=== PATIENT | female | born 1955 | race Caucasian/White ===

== ENCOUNTER 2019-10-25 08:13 | Inpatient (IN) | payer MEDICARE, SELFPAY ==
[2019-10-25] VITALS (28 sets, daily range): BP systolic 98–195; BP diastolic 43–142; PULSE 83–100; RESP 14–26; TEMP 36.2–36.8; O2SAT 96–100; BMI 15.5; BMI 15.3
--- NOTE | 2019-10-25 08:29 | EKG12_ITS ---
Test Reason : CP Blood Pressure : / mmHG Vent. Rate : 089 BPM Atrial Rate : 089 BPM P-R Int : 140 ms QRS Dur : 094 ms QT Int : 406 ms P-R-T Axes : 079 065 078 degrees QTc Int : 493 ms Sinus rhythm with occasional Premature ventricular complexes Left ventricular hypertrophy with repolarization abnormality Prolonged QT Abnormal ECG Confirmed by MIRANDA BHARDWAJ, HAL ([id number]), assistant film editor IFRAH HAHN ([id number]) on 10/30/2019 9:26:12 AM Referred By: SHAWNA Confirmed By:MEAGAN JEAN MD
--- NOTE | 2019-10-25 08:40 | NURSING ---
PT HAD NO PREVIOUS EKG DONE IN OUR SYSTEM
--- NOTE | 2019-10-25 08:47 | ED.DCSUM_ITS ---
- ER Visit Summary Date of Service: 10/25/19 Chief Complaint: [Chest pain] History of Present Illness: The patient is a 64 F [presents to the emergency department with complaint of chest pain that started this morning around an hour prior to arrival in the emergency department. Patient called EMS. Patient apparently staying at a motel in the area as she is here visiting try to take care of her brother who had a leg amputation. Patient states that the pain is sharp and stabbing and radiates down her left arm. She did feel nauseated and vomited x1. She does feel somewhat short of breath with it. She has had similar pains in the past. She tells me she has no heart history. Patient denies any fevers. Patient states that she has had a cough for some time with some sputum. She is a smoker. Patient has history of diabetes, hypertension, anxiety, and depression. Initially she denied any illicit drug use and then told the nursing staff that she smoked crack cocaine a few days ago. Patient has history of prior cholecystectomy and esophageal shortening. She tells me she has no primary care physician. She also tells me she was admitted to [facility] several weeks ago but cannot tell me why. She is not sure what medications she is on. When asked if she has had recent travel over 4 hours by car or airplane she states that she has but cannot tell me where she went and when.] Physical Examination: [HEENT-PERRLA, EOMI. Cranial nerves II through XII grossl y intact. TMs clear. Mucous membranes moist. No adenopathy. Cardiovascular-regular rate and rhythm without murmur or ectopy Lungs-clear to auscultation, chest wall stable without crepitus or subcu emphysema Abdomen-normoactive bowel sounds, soft, nontender, no rebound or rigidity, no peritoneal signs. Extremities-intact ?4, normal range of motion, normal pulses, atraumatic] Test Results: [EKG obtained arrival shows sinus rhythm with a ventricular rate of 89 bpm with occasional PVCs and LVH noted.] CBC with a potential echo 7.6, hemoglobin 11.5, hematocrit 34, placed 432. Chemistry showed a sodium 121, potassium 3.2, chloride 82, CO2 30, BUN 12, creatinine 1.47, glucose 935. Lipase was 240. Troponin less than 0.015. D-dimer was 1.09. Lactate was 3.3. Toxicology screen positive for cocaine. Chest x-ray obtained showed COPD and a left upper lobe and lower lobe infiltrate. CT of the chest was negative for PE or dissection she was noted to have left upper lobe and left lower lobe infiltrates. Emergency Department Course and Treatment: [9 established. Patient was given a liter normal same fluid bolus. Patient started on an insulin drip.. Patient was given Levaquin 750 p.o.] patient received sublingual nitro on arrival and had some pain relief with that. Aspirin was given by EMS. Treatment Plan: [Admit to ICU] Disposition: [Admit] Impression: [Pneumonia Hyperglycemia Hyponatremia Cocaine abuse Chest pain-etiology uncertain] This note was generated with [employer] dictation software. It may contain incorrect words, spelling, and punctuation that were not noted in review of the chart prior to signing
[2019-10-25 09:16] LABS: Bedside Glucose > 500 mg/dL (70-110)
[2019-10-25 09:39] LABS: Absolute Lymphocyte Count 1.37 X10^3/uL (0.83-4.51); Absolute Neutrophil Count 5.7 X10^3/uL (2.0-7.7); Basophil# 0.04 X10^3/uL; Basophil% 0.5 % (0-1); Eosinophil# 0.02 X10^3/uL; Eosinophils% 0.3 % (0-5); Hematocrit 34.1 % (37-47); Hemoglobin 11.5 g/dL (12.0-15.0); Lymphocyte # 1.37 X10^3/ul (4.0); Lymphocyte % 18.1 % (19-41); Mean Corp Hgb Conc 33.7 g/dL (32-36); Mean Corpuscular Volume 91.9 fL (81-99); Mean Platelet Vol. 10.5 fl (6.2-12.0); Monocyte% 5.3 % (0-10); NRBC Flagged by Analyzer 0 % (0-5); Neutrophil # 5.69 X10^3/uL (2.7-7.7); Neutrophil % 75.4 % (47-70); Platelet Count 432 K/mm3 (150-450); RBC Distribution Width CV 14.5 % (11.6-14.6); RBC Distribution Width SD 46.5 fl (35.1-43.9); Red Blood Count 3.71 M/mm3 (4.2-5.4); White Blood Count 7.6 K/mm3 (4.4-11.0)
[2019-10-25 09:39] LABS: Amphetamine Urine VISTA NEGATIVE (<1000 ng/mL); Barbiturate Urine VISTA NEGATIVE (< 200 ng/mL); Benzodiazepine Urine VISTA NEGATIVE (< 200 ng/mL); Cocaine Urine VISTA POSITIVE (< 300 ng/mL); Ecstacy Urine VISTA NEGATIVE (< 500 ng/mL); Methadone Urine VISTA NEGATIVE (< 300 ng/mL); PCP Urine VISTA NEGATIVE (< 25 ng/mL); THC Urine VISTA NEGATIVE (< 50 ng/mL); Vista UDS pH Range 6
[2019-10-25] MEDS: Ondansetron 4 MG/2 ML Vial IV ×2 (09:46→21:07)
[2019-10-25] MEDS: 0.9% Normal Saline 1,000 ML 999 ML IV (09:47)
[2019-10-25] MEDS: Nitroglycerin SL (ED/IMG/CATH) 0.4 MG TABLET SUBLINGUAL ×3 (09:49→10:09)
--- NOTE | 2019-10-25 09:49 | ED.RN ---
[facility] [place] [facility]. WAITING FOR THEM TO SEND US A RELEASE OF INFORMATION FORM TO FAX BACK BEFORE THE GIVE US HER MEDICATION LIST.
[2019-10-25 09:51] LABS: D-Dimer Quantitative (DVT/PE) 1.09 FEU/ug/m (0.27-0.49)
--- NOTE | 2019-10-25 09:55 | RAD_ITS ---
STUDY: X-RAY CHEST REASON FOR EXAM: Female, 64 years old. COUGH, SOB,CHILLS; CHEST PAIN AND RT ARM PAIN X1 HOUR TECHNIQUE: Single AP portable view of the chest. COMPARISON: None. FINDINGS: EKG electrodes are seen. Hyperinflation. There is a patchy infiltrate in the posterior medial segment of the left lower lobe. Mild increase markings with areas of confluence in the peripheral aspect of the left mid lung. There is no demonstrated pleural abnormality. Normal size heart. Normal mediastinum and emile. Normal visualized pulmonary arteries. There is atherosclerotic calcification of the aortic arch with tortuosity. Dextroscoliosis at the thoracal lumbar region. Normal visualized thoracic spine. Normal visualized ribs, clavicles, and shoulders. Surgical clips are seen in the epigastric region. RAD/Chest 1 View (Portable) IMPRESSION: Focal infiltrate in the posterior medial segment of the left upper lobe with areas of increased markings and confluence in the peripheral aspect of the left midlung. Electronically Signed: Benjamin Coronado, at 10:36 EDT , Service support ,
[2019-10-25 10:02] LABS: Anion Gap 9 (5-15); BUN 12 mg/dL (7-18); BUN/Creat Ratio 8.2 RATIO (10-20); Calcium,Total 9.1 mg/dL (8.5-10.1); Chloride 82 mmol/L (98-107); Creatinine, Serum 1.47 mg/dL (0.55-1.02); EST Glomerular Filtration Rate 38 mL/min (>60); Est Glom Filt Rate - Afr Amer 46 mL/min (>60); Estimated Creatinine Clearance 27.09 ml/min; Glucose 935 mg/dL (74-106); Lipase 240 U/L (73-393); Potassium 3.2 mmol/L (3.5-5.1); Sodium Level 121 mmol/L (136-145)
--- NOTE | 2019-10-25 10:08 | ED.RN ---
PT REFUSED MORPHINE, REQUESTING DILAUDID. MD AWARE, NO NEW ORDERS GIVEN.
--- NOTE | 2019-10-25 10:50 | CT_ITS ---
STUDY: CTA CHEST REASON FOR EXAM: Female, 64 years old. CP, MID STERNAL, R ARM, BACK X 1 HR. RADIATION DOSAGE (If Supplied By Facility): CTDIvol = ( 8.44 ) mGy, DLP = ( 110.24 ) mGycm TECHNIQUE: The examination was performed with the intravenous administration of 100 CC ISOVUE 370. Post-processing of the angiographic images was performed, with multiplanar reformation and 3D reconstruction. Individualized dose optimization techniques were used for this CT. COMPARISON: None. FINDINGS: The patient is status post gastric pull-through procedure with esophagus and stomach in the right paraspinal region. Normal enhancement of the main pulmonary artery and right and left pulmonary arteries. Normal enhancement of the bilateral peripheral pulmonary arteries. There is no demonstrated pulmonary embolism. There is atherosclerotic calcification of the aortic arch with tortuosity. There is no demonstrated aortic dissection. Normal heart and pericardium. Normal mediastinum. Normal hilar regions. Normal visualized trachea and bronchi. The lungs are well expanded. Focal infiltrate in the posterior aspect of the left upper lobe. There is evidence of a 1.7 cm x 0.9 cm pleural-based nodule at that site as seen on axial image #124. Follow-up is recommended. There is also evidence of focal infiltration in the left lower lobe. The right lung is clear Normal pleura. Normal chest wall structures. There are degenerative changes of thoracic spine. Normal visualized upper abdomen. CT/CTA Chest W/WO Contrast IMPRESSION: No evidence of pulmonary embolism. Infiltration in the posterior aspect of the left upper lobe as well as in the left lower lobe with pleural based nodule in the posterior aspect of the right upper lobe. Follow-up is recommended. Electronically Signed: Benjamin Coronado, at 12:47 EDT , Service support ,
[2019-10-25] MEDS: 0.9% Normal Saline 1,000 ML 150 ML IV ×2 (12:16→18:49)
[2019-10-25 12:48] LABS: Glucose 628 mg/dL (74-106)
[2019-10-25] MEDS: LORazepam 2 MG/ML Syringe 0.5 MG IV (13:07)
[2019-10-25 13:09] LABS: Lactic Acid 3.3 mmol/L (0.4-1.9)
[2019-10-25] MEDS: levoFLOXacin 750 MG Tablet PO (13:14)
--- NOTE | 2019-10-25 13:14 | NURSING ---
DR BAY FOR DR SANTANA
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
--- NOTE | 2019-10-25 13:22 | NURSING ---
ICU PNEUMONIA, CP, HYPERGLYCEMIA, COCAINE ABUSE PAINTSIL
--- NOTE | 2019-10-25 14:28 | NURSING ---
ICU 2
[2019-10-25 14:41] LABS: Bedside Glucose 385 mg/dL (70-110)
[2019-10-25 15:16] LABS: Bedside Glucose 333 mg/dL (70-110)
[2019-10-25] MEDS: Enoxaparin 30 MG/0.3 ML Syringe SC (16:20)
[2019-10-25] MEDS: Insulin Lispro 100 UNIT/ML INSULN.PEN SC ×2 (16:21→21:05)
[2019-10-25] MEDS: Gabapentin 400 MG Capsule PO (16:23)
[2019-10-25 16:25] LABS: Reflex Lactate? Y
[2019-10-25 16:36] LABS: Bedside Glucose 343 mg/dL (70-110)
[2019-10-25] MEDS: 0.9% Saline Lock 10 ML Syringe IV ×2 (17:01→21:07)
[2019-10-25] MEDS: Morphine 2 MG/ML Syringe IV ×2 (17:01→23:05)
[2019-10-25 18:15] LABS: Anion Gap 7 (5-15); BUN 11 mg/dL (7-18); BUN/Creat Ratio 9.6 RATIO (10-20); Calcium,Total 8.5 mg/dL (8.5-10.1); Chloride 96 mmol/L (98-107); Creatinine, Serum 1.15 mg/dL (0.55-1.02); EST Glomerular Filtration Rate 51 mL/min (>60); Est Glom Filt Rate - Afr Amer 61 mL/min (>60); Estimated Creatinine Clearance 33.91 ml/min; Glucose 346 mg/dL (74-106); Sodium Level 131 mmol/L (136-145)
[2019-10-25 18:21] LABS: Lactic Acid 2.6 mmol/L (0.4-1.9)
[2019-10-25] MEDS: LORazepam 1 MG Tablet PO (18:48)
[2019-10-25 19:03] LABS: Hemoglobin A1c > 16.0 % (3.8-5.6)
[2019-10-25] MEDS: Gabapentin 600 MG Tablet PO (21:06)
[2019-10-25] MEDS: cycloBENZAPRine HCl 10 MG Tablet PO (21:06)
[2019-10-25] MEDS: Pantoprazole Sodium 20 MG Tablet PO (21:06)
[2019-10-25 21:20] LABS: Bedside Glucose 309 mg/dL (70-110)
--- NOTE | 2019-10-25 21:27 | NURSING ---
report called to Rolando RN, pt will be transferred to [id number]
[2019-10-25] MEDS: Lidocaine 5% Patch 2 PATCH TOPICAL (23:04)
[2019-10-26] VITALS (7 sets, daily range): BP systolic 91–103; BP diastolic 49–57; PULSE 78–93; RESP 16–20; TEMP 36.8; O2SAT 95–96
[2019-10-26] MEDS: 0.9% Normal Saline 1,000 ML 150 ML IV ×2 (01:49→08:27)
[2019-10-26 03:41] LABS: Bedside Glucose 122 mg/dL (70-110)
[2019-10-26] MEDS: Ondansetron 4 MG/2 ML Vial IV (05:33)
[2019-10-26] MEDS: 0.9% Saline Lock 10 ML Syringe IV (05:35)
[2019-10-26 06:36] LABS: ALB/GLOB Ratio 0.4 RATIO (0.9-2.4); AST(SGOT) 24 U/L (15-37); Alanine Aminotransfer ALT/SGPT 20 U/L (13-56); Albumin, Serum 1.6 g/dL (3.2-5.0); Alkaline Phosphatase 94 U/L (45-117); Anion Gap 6 (5-15); BUN 15 mg/dL (7-18); BUN/Creat Ratio 16.8 RATIO (10-20); Calcium,Total 7.5 mg/dL (8.5-10.1); Chloride 103 mmol/L (98-107); EST Glomerular Filtration Rate 68 mL/min (>60); Est Glom Filt Rate - Afr Amer 82 mL/min (>60); Estimated Creatinine Clearance 46.66 ml/min; Globulin 4.5 g/dL (2.2-4.2); Glucose 99 mg/dL (74-106); Potassium 3.6 mmol/L (3.5-5.1); Protein, Total 6.1 g/dL (6.4-8.2); Sodium Level 131 mmol/L (136-145)
[2019-10-26 06:51] LABS: Bedside Glucose 121 mg/dL (70-110)
[2019-10-26 07:12] LABS: Absolute Lymphocyte Count 3.27 X10^3/uL (0.83-4.51); Absolute Neutrophil Count 4.1 X10^3/uL (2.0-7.7); Basophil# 0.06 X10^3/uL; Basophil% 0.7 % (0-1); Eosinophil# 0.25 X10^3/uL; Hematocrit 28.3 % (37-47); Hemoglobin 9.1 g/dL (12.0-15.0); Lymphocyte # 3.27 X10^3/ul (4.0); Lymphocyte % 39.2 % (19-41); Mean Corp Hgb Conc 32.2 g/dL (32-36); Mean Corpuscular Hgb 29.2 pg (27.0-32.0); Mean Corpuscular Volume 90.7 fL (81-99); Monocyte# 0.65 X10^3/uL; Monocyte% 7.8 % (0-10); NRBC Flagged by Analyzer 0 % (0-5); Neutrophil # 4.07 X10^3/uL (2.7-7.7); Neutrophil % 48.8 % (47-70); Platelet Count 399 K/mm3 (150-450); RBC Distribution Width CV 14.6 % (11.6-14.6); RBC Distribution Width SD 47.9 fl (35.1-43.9); Red Blood Count 3.12 M/mm3 (4.2-5.4); White Blood Count 8.3 K/mm3 (4.4-11.0)
[2019-10-26] MEDS: Ipratropium/Albuterol Sulfate 3 ML AMPUL.NEB INHALATION (07:20)
[2019-10-26] MEDS: Enoxaparin 30 MG/0.3 ML Syringe SC (08:28)
[2019-10-26] MEDS: Pantoprazole Sodium 20 MG Tablet PO (08:28)
[2019-10-26] MEDS: Gabapentin 400 MG Capsule PO (08:29)
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
--- NOTE | 2019-10-26 11:49 | NURSING ---
patient removed own ivs got dressed states she is leaving will not let nurse take blood sugar or vital signs. left with her belongings refused to stay to talk to md states she has an appointment on the
--- NOTE | 2019-10-26 12:38 | DS.PCM_ITS ---
<Evan Ahuja - Last Filed: 10/26/19 12:38> Discharge Date and Diagnosis Date of Admission: 10/25/19 Date of Discharge: 10/26/19 - Primary Discharge Diagnosis Acute Problems: HHS syndrome 2/2 medication noncompliance Community Acquired Pna COPD exacerbation BERNARDA 2/2 HHX Hypokalemia/hyponatremia Crack/cocaine abuse - Secondary Discharge Diagnosis Chronic Problems: Chronic Problems DM type 2 (diabetes mellitus, type 2) (Chronic) COPD (chronic obstructive pulmonary disease) (Chronic) Hospital Course and Treatment Imaging Results: RAD/Chest 1 View (Portable) IMPRESSION: Focal infiltrate in the posterior medial segment of the left upper lobe with areas of increased markings and confluence in the peripheral aspect of the left midlung. CT/CTA Chest W/WO Contrast IMPRESSION: No evidence of pulmonary embolism. Infiltration in the posterior aspect of the left upper lobe as well as in the left lower lobe with pleural based nodule in the posterior aspect of the right upper lobe. Follow-up is recommended. Operations: None Procedures: None Summary of Care Provided: Hospital course: The patient is a 64 year old F past medical history of COPD, chronic hypoxic respiratory failure, nicotine abuse recent admission at [facility] for pneumonia who presented to the emergency room with complaints of left-sided chest pain for the past day. Patient was found to have severe hyperglycemia and admitted that she had moved from [place] to her brother's house and did not bring any of her insulin or other medications and had been intermittently using her brothers insulin up until recently she had gotten an argument with him and moved out to a motel where she has not been using any insulin. CTA of the chest demonstrated left-sided pneumonia. She did not have fever or leukocytosis however did have subjective chills overnight and had lactic acidosis. She had elevated creatinine consistent with acute kidney injury, hypokalemia, hyponatremia. EKG was normal and troponin was negative. She was admitted for pneumonia, HHS, BERNARDA. She was started on Levaquin. The following day she was significantly wheezy, coughing, short of breath, was going to be started on steroids for COPD exacerbation, in addition to her other ongoing problems however the patient became agitated and left AGAINST MEDICAL ADVICE. This patient was seen by Evan Ahuja PA-C under the supervision of Doctor Jeanette. [] - Physical Exam Vitals/I&O's: Vital Signs Temp Pulse Resp BP Pulse Ox 98.3 F 93 18 103/57 L 95 10/26/19 05:29 10/26/19 11:06 10/26/19 07:20 10/26/19 05:29 10/26/19 05:29 Oxygen Flow Rate (L/min) 3 Oxygen Delivery Method Nasal Cannula Weight: 101 lb 13.657 oz Body Mass Index (BMI) 15.3 Intake and Output for Last 24 Hours 10/24/19 10/25/19 10/26/19 23:59 23:59 23:59 Intake Total 2418.54 / 2418.54 2482.5 / 2482.5 Output Total 300 / 300 250 / 250 Balance 2118.54 / 2118.54 2232.5 / 2232.5 General: Alert, Oriented x3, Cooperative HEENT: Atraumatic, PERRLA, EOMI, Normocephalic Neck: Supple, No JVD, Negative Carotid Bruits Lungs: Diminished, Rales, Rhonchi, Wheezes Cardiovascular: Regular rate, No murmurs Abdomen: Bowel Sounds Present, Soft, Non Tender Extremities: No edema, Capillary Refill Less than 3 Seconds Skin: No rashes, No breakdown Musculoskeletal: No Tenderness to Palpation of Joints or Extremities Neurological: Cranial nerves II-XII grossly intact Psych/Mental Status: Normal Affect, Appropriate, Alert and oriented to time, place, person, mood and affect Microbiology Past 72 Hours 10/25/19 16:15 Urine, Clean Catch Streptococcus pneumoniae Antigen (M - Final Streptococcus pneumonia Ag 10/25/19 16:15 Urine, Clean Catch Legionella Antigen - Final Laboratory Results 10/25/19 09:30: Magnesium 2.0 10/25/19 09:30: Hemoglobin A1c > 16.0 H 10/25/19 12:10: Glucose 628 H* 10/25/19 12:10: Lactic Acid 3.3 H* 10/25/19 13:10: COVID-19 (ULI) Not Detected 10/25/19 14:37: POC Glucose 385 H 10/25/19 15:03: POC Glucose 333 H 10/25/19 16:12: POC Glucose 343 H 10/25/19 17:19: Sodium 131 L, Potassium 3.0 L, Chloride 96 L, Carbon Dioxide 28. 0, Anion Gap 7, BUN 11, Creatinine 1.15 H, Estim Creat Clear Calc 33.91, Est GFR (MDRD) Af Amer 61, Est GFR (MDRD) Non-Af 51 L, BUN/Creatinine Ratio 9.6 L, Glucose 346 H, Calcium 8.5, Troponin I < 0.015 10/25/19 17:19: Lactic Acid 2.6 H* 10/25/19 20:45: Troponin I < 0.015 10/25/19 20:52: POC Glucose 309 H 10/26/19 03:33: POC Glucose 122 H 10/26/19 05:50: WBC Cancelled, Corrected WBC Cancelled, RBC Cancelled, Hgb Cancelled, Hct Cancelled, MCV Cancelled, MCH Cancelled, MCHC Cancelled, RDW Std Deviation Cancelled, RDW Coeff of Raman Cancelled, Plt Count Cancelled, MPV Cancelled, Immature Gran % (Auto) Cancelled, Neut % (Auto) Cancelled, Lymph % (A uto) Cancelled, Treasure % (Auto) Cancelled, Eos % (Auto) Cancelled, Baso % (Auto) Cancelled, Absolute Neuts (auto) Cancelled, Absolute Lymphs (auto) Cancelled, Total Counted Cancelled, Neutrophils % (Manual) Cancelled, Band Neutrophils % Cancelled, Lymphocytes % (Manual) Cancelled, Monocytes % (Manual) Cancelled, Eosinophils % (Manual) Cancelled, Basophils % (Manual) Cancelled, Metamyelocytes % Cancelled, Myelocytes % Cancelled, Promyelocytes % Cancelled, Blast Cells % Cancelled, Plasma Cell % (Manual) Cancelled, Other Cells % Cancelled, Nucleated RBC % Cancelled, Nucleated RBCs/100 WBC Cancelled, Differential Comment Cancelled, Diff Path Review Cancelled, Hypersegmented Neuts Cancelled, Atypical Lymphocytes Cancelled, Reactive Lymphocytes Cancelled, Smudge Cells Cancelled, Toxic Granulation Cancelled, Toxic Vacuolation Cancelled, Dohle Bodies Cancelled, Cesar Rods Cancelled, Platelet Estimate Cancelled, Plt Morphology Comment Cancelled, RBC Morphology Cancelled, Polychromasia Cancelled, H ypochromasia Cancelled, Poikilocytosis Cancelled, Basophilic Stippling Cancelled, Anisocytosis Cancelled, Microcytosis Cancelled, Macrocytosis Cancelled, Spherocytes Cancelled, Sickle Cells Cancelled, Target Cells Cancelled, Tear Drop Cells Cancelled, Ovalocytes Cancelled, Stomatocytes Cancelled, Mg-Crumpton Bodies Cancelled, Sunil Cells Cancelled, Bite Cells Cancelled, Crenated Cell Cancelled, Acanthocytes (Spur) Cancelled, Rouleaux Cancelled, Schistocytes Cancelled 10/26/19 05:50: Sodium 131 L, Potassium 3.6, Chloride 103, Carbon Dioxide 22.0, Anion Gap 6, BUN 15, Creatinine 0.90, Estim Creat Clear Calc 46.66, Est GFR (MDRD) Af Amer 82, Est GFR (MDRD) Non-Af 68, BUN/Creatinine Ratio 16.8, Glucose 99, Calcium 7.5 L, Total Bilirubin 0.40, AST 24, ALT 20, Alkaline Phosphatase 94, Total Protein 6.1 L, Albumin 1.6 L, Globulin 4.5 H, Albumin/Globulin Ratio 0.4 L 10/26/19 06:44: POC Glucose 121 H 10/26/19 07:00: WBC 8.3, RBC 3.12 L, Hgb 9.1 L, Hct 28.3 L, MCV 90.7, MCH 29.2, MCHC 32.2, RDW Std Deviation 47.9 H, RDW Coeff of Raman 14.6, Plt Count 399, MPV 10.0, Immature Gran % (Auto) 0.500, Neut % (Auto) 48.8, Lymph % (Auto) 39.2, Treasure % (Auto) 7.8, Eos % (Auto) 3.0, Baso % (Auto) 0.7, Absolute Neuts (auto) 4.1, Absolute Lymphs (auto) 3.27, Nucleated RBC % 0 Discharge Diet: Low fat/ Low Cholesterol, 2000 mg Sodium Diet Discharge Activity: Return to Normal Activity Home Medications: Medications to take at Discharge Cyclobenzaprine HCl 10 mg PO QHS 10/25/19 Gabapentin [Neurontin] 400 mg PO BID 10/25/19 Gabapentin [Neurontin] 600 mg PO QHS 10/25/19 Ibuprofen 600 mg PO TIDCM 10/25/19 Ketotifen Fumarate 1 drp EACH EYE BID 10/25/19 Lidocaine [Lidocaine 5%] 1 applic TOPICAL BID 10/25/19 Omeprazole 20 mg PO BID 10/25/19 ALPRAZolam [Xanax] 0.5 mg PO TID PRN PRN 10/26/19 Primary Care Physician: MARGAUX LLANES [Other] Disposition: Against Medical Advice Minutes spent on discharge:: 35 Patient Condition:: Stable Medical Necessity - Tobacco Use Smoking Status: Former smoker Tobacco Use: Cigarettes Meaningful Use Info Meaningful Use Diagnoses (Choose all that apply): None applicable <Jeremías Reid - Last Filed: 10/26/19 14:40> Discharge Date and Diagnosis - Secondary Discharge Diagnosis Chronic Problems: Chronic Problems DM type 2 (diabetes mellitus, type 2) (Chronic) COPD (chronic obstructive pulmonary disease) (Chronic) Hospital Course and Treatment Operations: None Procedures: None Summary of Care Provided: Patient seen and examined independently. Data reviewed. I agree with the above note by the physician child and youth program assistant. The patient is a 64 year old F presents with chest pain. Patient was found to have a pneumonia as well as hyperglycemia. Patient was started on antibiotics. Patient was complaining of pain and did receive some narcotics earlier but it was told to her that given her cocaine use that they would not use lies any narcotics and use nonnarcotics instead. She asked for ibuprofen and Lidoderm. Just related to her upon discharge as well. Told her that I could prescribe that but the cost may be prohibitive. She Willie that she would be able to afford that. She did asked for benzodiazepines for her anxiety. I told her that I reviewed her OARRS and it showed that she received [address] Betts on October 16. I told her that given her cocaine use I would not be utilizing that agent. Patient seemed content and at that point time but decided to leave AGAINST MEDICAL ADVICE subsequently thereafter. [] - Physical Exam Vitals/I&O's: Vital Signs Temp Pulse Resp BP Pulse Ox 36.8 C 93 18 103/57 L 95 10/26/19 05:29 10/26/19 11:06 10/26/19 07:20 10/26/19 05:29 10/26/19 05:29 Oxygen Flow Rate (L/min) 3 Oxygen Delivery Method Nasal Cannula Weight: 46.2 kg Body Mass Index (BMI) 15.3 Intake and Output for Last 24 Hours 10/24/19 10/25/19 10/26/19 23:59 23:59 23:59 Intake Total 2418.54 / 2418.54 2482.5 / 2482.5 Output Total 300 / 300 250 / 250 Balance 2118.54 / 2118.54 2232.5 / 2232.5 General: Alert, Cooperative HEENT: Atraumatic, Normocephalic Neck: No JVD, Negative Carotid Bruits Lungs: Diminished, Rales, Rhonchi, Wheezes Cardiovascular: Regular rate, No murmurs Abdomen: Bowel Sounds Present, Soft, Non Tender Extremities: No edema, No Calf Tenderness Skin: No rashes, No breakdown Microbiology Past 72 Hours 10/25/19 16:15 Urine, Clean Catch Streptococcus pneumoniae Antigen (M - Final Streptococcus pneumonia Ag 10/25/19 16:15 Urine, Clean Catch Legionella Antigen - Final Laboratory Results 10/25/19 09:30: Magnesium 2.0 10/25/19 09:30: Hemoglobin A1c > 16.0 H 10/25/19 13:10: COVID-19 (ULI) Not Detected 10/25/19 14:37: POC Glucose 385 H 10/25/19 15:03: POC Glucose 333 H 10/25/19 16:12: POC Glucose 343 H 10/25/19 17:19: Sodium 131 L, Potassium 3.0 L, Chloride 96 L, Carbon Dioxide 28.0, Anion Gap 7, BUN 11, Creatinine 1.15 H, Estim Creat Clear Calc 33.91, Est GFR (MDRD) Af Amer 61, Est GFR (MDRD) Non-Af 51 L, BUN/Creatinine Ratio 9.6 L, Glucose 346 H, Calcium 8.5, Troponin I < 0.015 10/25/19 17:19: Lactic Acid 2.6 H* 10/25/19 20:45: Troponin I < 0.015 10/25/19 20:52: POC Glucose 309 H 10/26/19 03:33: POC Glucose 122 H 10/26/19 05:50: WBC Cancelled, Corrected WBC Cancelled, RBC Cancelled, Hgb Cancelled, Hct Cancelled, MCV Cancelled, MCH Cancelled, MCHC Cancelled, RDW Std Deviation Cancelled, RDW Coeff of Raman Cancelled, Plt Count Cancelled, MPV Cancelled, Immature Gran % (Auto) Cancelled, Neut % (Auto) Cancelled, Lymph % (Auto) Cancelled, Treasure % (Auto) Cancelled, Eos % (Auto) Cancelled, Baso % (Auto) Cancelled, Absolute Neuts (auto) Cancelled, Absolute Lymphs (auto) Cancelled, Total Counted Cancelled, Neutrophils % (Manual) Cancelled, Band Neutrophils % Cancelled, Lymphocytes % (Manual) Cancelled, Monocytes % (Manual) Cancelled, Eosinophils % (Manual) Cancelled, Basophils % (Manual) Cancelled, Metamyelocytes % Cancelled, Myelocytes % Cancelled, Promyelocytes % Cancelled, Blast Cells % Cancelled, Plasma Cell % (Manual) Cancelled, Other Cells % Cancelled, Nucleated RBC % Cancelled, Nucleated RBCs/100 WBC Cancelled, Differential Comment Cancelled, Diff Path Review Cancelled, Hypersegmented Neuts Cancelled, Atypical Lymphocytes Cancelled, Reactive Lymphocytes Cancelled, Smudge Cells Cancelled, Toxic Granulation Cancelled, Toxic Vacuolation Cancelled, Dohle Bodies Cancelled, Cesar Rods Cancelled, Platelet Estimate Cancelled, Plt Morphology Comment Cancelled, RBC Morphology Cancelled, Polychromasia Cancelled, Hypochromasia Cancelled, Poikilocytosis Cancelled, Basophilic Stippling Cancelled, Anisocytosis Cancelled, Microcytosis Cancelled, Macrocytosis Cancelled, Spherocytes Cancelled, Sickle Cells Cancelled, Target Cells Cancelled, Tear Drop Cells Cancelled, Ovalocytes Cancelled, Stomatocytes Cancelled, Mg-Crumpton Bodies Cancelled, Gilmer Cells Cancelled, Bite Cells Can celled, Crenated Cell Cancelled, Acanthocytes (Spur) Cancelled, Rouleaux Cancelled, Schistocytes Cancelled 10/26/19 05:50: Sodium 131 L, Potassium 3.6, Chloride 103, Carbon Dioxide 22.0, Anion Gap 6, BUN 15, Creatinine 0.90, Estim Creat Clear Calc 46.66, Est GFR (MDRD) Af Amer 82, Est GFR (MDRD) Non-Af 68, BUN/Creatinine Ratio 16.8, Glucose 99, Calcium 7.5 L, Total Bilirubin 0.40, AST 24, ALT 20, Alkaline Phosphatase 94, Total Protein 6.1 L, Albumin 1.6 L, Globulin 4.5 H, Albumin/Globulin Ratio 0.4 L 10/26/19 06:44: POC Glucose 121 H 10/26/19 07:00: WBC 8.3, RBC 3.12 L, Hgb 9.1 L, Hct 28.3 L, MCV 90.7, MCH 29.2, MCHC 32.2, RDW Std Deviation 47.9 H, RDW Coeff of Raman 14.6, Plt Count 399, MPV 10.0, Immature Gran % (Auto) 0.500, Neut % (Auto) 48.8, Lymph % (Auto) 39.2, Treasure % (Auto) 7.8, Eos % (Auto) 3.0, Baso % (Auto) 0.7, Absolute Neuts (auto) 4.1, Absolute Lymphs (auto) 3.27, Nucleated RBC % 0 Discharge Diet: 2000 mg Sodium Diet Discharge Activity: Return to Normal Activity Minutes spent on discharge:: 35 Medical Necessity - Tobacco Use Smoking Status: Former smoker Tobacco Use: Cigarettes Inpatient E&M: [id number] Disch Hosp
--- NOTE | 2019-10-30 15:02 | NURSING ---
FEDERICO Arrieta called pt at 1500 on 10/30/2019 to check to see how her left AC looked after extravasation on 10/25/2019. Pt requests to be called again later.
--- NOTE | 2019-10-31 12:08 | NURSING ---
FEDERICO Arrieta attempted follow up call per pt request, pt did not answer, voicemail full.
== END 2019-10-26 11:50 | disposition left against medical advice (07) | DRG 637 ==
LOC: ED 12:13 → ICU 14:12 → PCU 21:37
PROVIDERS: Admitting Provider Internal Medicine; Emergency Provider Emergency Medicine
DX: E11.00 Type 2 diabetes mellitus with hyperosmolarity without nonketotic hyperglycemic-hyperosmolar coma (NKHHC) (principal); J18.9 Pneumonia, unspecified organism; J44.0 Chronic obstructive pulmonary disease with (acute) lower respiratory infection; N17.9 Acute kidney failure, unspecified; J96.10 Chronic respiratory failure, unspecified whether with hypoxia or hypercapnia; E78.2 Mixed hyperlipidemia; I10 Essential (primary) hypertension; F32.9 Major depressive disorder, single episode, unspecified; E11.69 Type 2 diabetes mellitus with other specified complication; F41.9 Anxiety disorder, unspecified; E87.6 Hypokalemia; G89.29 Other chronic pain; M54.5 Low back pain; F17.210 Nicotine dependence, cigarettes, uncomplicated; F14.10 Cocaine abuse, uncomplicated; Z79.4 Long term (current) use of insulin; Z91.14 Patient's other noncompliance with medication regimen; Z79.899 Other long term (current) drug therapy; Z99.81 Dependence on supplemental oxygen
CPT/HCPCS: 36415; 71045; 71275; 80048; 80053; 80307; 80320; 82947; 82962; 83036; 83605; 83690; 83735; 84484; 85025; 85379; 87040; 87449; 87635; 93005; 94640; 94799; 97802; 99285; 99406; J7030; Q9967; A4216; G0480; J2405; U0003